=== PATIENT | female | born 1960 | race Caucasian/White ===

== ENCOUNTER 2018-04-26 20:05 | Inpatient (IN) | END 2018-05-03 13:56 | disposition home health service (06) | DRG 41 ==

== ENCOUNTER 2018-05-10 12:50 | Inpatient (IN) | END 2018-05-21 18:30 | DRG 560 ==

== ENCOUNTER 2018-05-21 18:30 | Inpatient (IN) | END 2018-05-28 20:20 | DRG 560 ==

== ENCOUNTER 2018-06-09 22:49 | Emergency (ER) | END 2018-06-10 04:15 | disposition home or self-care (01) ==

== ENCOUNTER 2018-07-06 04:24 | Inpatient (IN) | END 2018-07-17 20:52 | disposition home health service (06) | DRG 902 ==

== ENCOUNTER 2019-06-12 10:41 | Emergency (ER) | payer BC ==
[~2019-06-12] VITALS: Ht 170.2 cm; Wt 109.1 kg
[~2019-06-12 10:41] MED LIST: AMLO-145 PO; ATOR40TA68 PO; CLOP75TA27 PO; DAPT500V IV; ERTA1VIA IJ; FENO134C PO; FURO-110 PO; HYDR-3671 PO; LANT3I SC; LEVO112T42 PO; LIDO700A45 TD; LIRA0.6P SQ; LIRA0.6P2 SQ; LISI-471 PO; NEBI20TA2 PO; NOVO3I SC; SAN30GM TOP; VIT1TABL46 PO; ZOLP5TAB PO
[2019-06-12 10:43] VITALS: Ht 170.2 cm; Wt 109.1 kg
[2019-06-12] MEDS ORDERED: ALTEPLASE (CATHFLO) 2 MG INJ CATHETER ONE (15:00)
== END 2019-06-12 17:35 | disposition home or self-care (01) ==
LOC: FTE 10:41 → E/R 17:35
DX: T82.898A Other specified complication of vascular prosthetic devices, implants and grafts, initial encounter (principal); Y71.2 Prosthetic and other implants, materials and accessory cardiovascular devices associated with adverse incidents; Z79.01 Long term (current) use of anticoagulants; Z79.4 Long term (current) use of insulin; Z86.73 Personal history of transient ischemic attack (TIA), and cerebral infarction without residual deficits
CPT/HCPCS: 36573; 71045; 92977; J2997